=== PATIENT | female | born 1965 | race Asian ===

== ENCOUNTER 2017-08-24 13:42 | Emergency (ER) | END 2017-08-24 15:39 | disposition left against medical advice (07) ==

== ENCOUNTER 2017-12-21 05:39 | Inpatient (IN) | END 2017-12-22 18:35 | disposition home or self-care (01) | DRG 470 ==

== ENCOUNTER 2018-09-07 06:05 | Day surgery (SDC) | payer OTHER ==
[~2018-09-07] VITALS: Ht 165.1 cm; Wt 79.8 kg
[~2018-09-07 06:05] MED LIST: ATOR20TA38 PO; LISI10TA2 PO; METF500T24 PO; MONT10TA24 PO; OMEP40CA6 PO
[2018-09-07] MEDS ORDERED: PROPOFOL 200 MG INJ ONE (07:00)
[2018-09-07 07:13] VITALS: Ht 165.1 cm; Wt 79.8 kg
[2018-09-07] MEDS ORDERED: GLIPIZIDE (07:20)
[2018-09-07] MEDS ORDERED: QVAR (07:20)
[2018-09-07] MEDS ORDERED: ALBUTEROL (07:20)
[2018-09-07] MEDS ORDERED: ATORVASTATIN (07:20)
[2018-09-07] MEDS ORDERED: HCTZ (07:20)
[2018-09-07] MEDS ORDERED: LIDOCAINE 2% (SDV) 5 ML INJ ONE (07:55)
[2018-09-07] MEDS ORDERED: FENTAnyl 50 MCG/ML VIAL ONE (07:55)
[2018-09-07] MEDS ORDERED: MIDAZOLAM 1 MG/ML 2 ML INJ ONE (07:55)
[2018-09-07] MEDS ORDERED: PROPOFOL 40 ML ONE (07:55)
[2018-09-07 07:59] VITALS: BP 124/60; PULSE 66; RESP 18
--- NOTE | 2018-09-07 08:03 | PREAC ---
Date/Time of Note Date/Time of Note DATE: 09/07/18 TIME: 08:02 Anesthesia Eval and Record Evaluation Time Pre-Procedure Interview DATE: 09/07/18 TIME: 08:02 Age 52 Sex female NPO: 8 hrs Preoperative diagnosis screening colonoscopy Planned procedure screening colonoscopy for cancer Past Medical History Past Medical History: Includes Endo: Diabetes Surgery & Anesthesia Issues No known issue Meds Anticoagulation: No Beta Jose Daniel within 24 hr: No Reason Beta Jose Daniel not given: Pt. not on B-Jose Daniel Reported Medications [Glipizide] No Conflict Check 09/07/18 [Hctz] No Conflict Check 09/07/18 [Albuterol] No Conflict Check 09/07/18 [Qvar] No Conflict Check 09/07/18 Metformin Hcl* (Metformin Hcl*) 500 Mg Tablet, 500 MG PO WITH BREAKFAST, #30 TAB 12/21/17 Lisinopril* (Lisinopril*) 10 Mg Tablet, 10 MG PO DAILY, #30 TAB 12/21/17 Atorvastatin Calcium* (Atorvastatin Calcium*) 20 Mg Tablet, 20 MG PO QHS, #30 TAB 12/21/17 Discontinued Reported Medications [Atorvastatin] No Conflict Check 09/07/18 Montelukast Sodium* (Montelukast Sodium*) 10 Mg Tablet, 10 MG PO QHS, #30 TAB 12/21/17 Omeprazole* (Omeprazole*) 40 Mg Capsule.dr, 40 MG PO DAILY, #30 CAP 12/21/17 Meds reviewed: Yes Allergies Coded Allergies: No Known Allergy (Unverified , 08/24/17) Allergies Reviewed: Yes Labs/Studies Labs Reviewed: Reviewed by anesthesiologist test: N/A Pre-procedure Exam Airway: Adequate mouth opening, Adequate thyromental dist Mallampati: Mallampati IV Teeth: Normal Lung: Normal Heart: Normal ASA Physical Status ASA physical status: 3 Emergency: None Pre-operative Attestations Prior to commencing anesthesia and surgery, the patient was re-evaluated, there was verification of: *The patient's identity *The results of appropriate recent lab work and preoperative vital signs *The above evaluation not changing prior to induction *Anesthetic plan, risk benefits, alternative and complications discussed with patient/family; questions answered; patient/family understands, accepts and wishes to proceed. LAMONT BEACH DO September 07, 2018 08:03
[2018-09-07] MEDS ORDERED: PHENYLephrine (100 MCG/ML) 10ML SYG ONE (08:13)
[2018-09-07 08:26] VITALS: BP 83/48
[2018-09-07 08:31] VITALS: BP 89/51; PULSE 74
[2018-09-07 08:36] VITALS: BP 102/66; PULSE 84
--- NOTE | 2018-09-07 08:43 | PAC ---
Date/Time of Note Date/Time of Note DATE: 09/07/18 TIME: 08:43 Post-Anesthesia Notes Post-Anesthesia Note Last documented vital signs 105/61 70 98% 98 18 Activity: WNL Respiratory function: WNL Cardiovascular function: WNL Mental status: Baseline Pain reasonably controlled: Yes Hydration appropriate: Yes Nausea/Vomiting absent: Yes LAMONT BEACH DO September 07, 2018 08:43
== END 2018-09-07 15:56 | disposition home or self-care (01) ==
LOC: GIL 06:05
PROVIDERS: ATTEND Internal Medicine Gastroenterology
DX: Z12.11 Encounter for screening for malignant neoplasm of colon (principal); K64.8 Other hemorrhoids; E11.9 Type 2 diabetes mellitus without complications; Z79.84 Long term (current) use of oral hypoglycemic drugs
CPT/HCPCS: 45378; 82962; 84703; J2250; J2370; J3010; Z7610